=== PATIENT | male | born 2000 | race Caucasian/White ===

== ENCOUNTER 2020-11-23 10:56 | Outpatient (CLI) | payer MEDICAID, SELFPAY ==
--- NOTE | 2020-11-23 11:00 | MR_ITS ---
WS: [id number] MRI LUMBAR SPINE WITH CONTRAST TECHNIQUE: Sagittal T1, T2 and STIR imaging. Axial T1 and T2 imaging. Post gadolinium imaging was obt ained. CLINICAL INFORMATION: HX OF SPINAL HEMANGIOMA; LBP COMPARISON: None. FINDINGS: Mild lumbar curve. No acute compression. Large midline disc protrusion L3-4 results in severe central canal stenosis. L1-L2: Normal. L2-L3: No significant disc bulging. Spinal canal and foramen are patent. L3-L4: Large midline disc protrusion results in severe central canal stenosis. Impingement traversing right greater than left L4 nerve roots. Midline protrusion measures approximately 9.8 x 9.7 mm. Mild facet arthropathy. Foramen are patent. L4-L5: Small left pericentral disc protrusion impinges the traversing left L5 nerve root in the subar ticular recess. Mild central canal stenosis. Mild facet arthropathy. Foramen are patent. L5-S1: No significant disc bulging. Mild facet arthropathy. Spinal canal and foramen are patent. Small right pericentral protrusions T5-T6 and T6-T7 seen on the creative art director imaging mid thoracic spine. Sma ller disc protrusions at T7-T9. Thoracic spine can be further evaluated with MRI. Visualized pelvic bony structures: Normal. Paravertebral soft tissues: A few enlarged periaortic and retroperitoneal lymph nodes nonspecific but likely reactive in a patient this age. Largest lymph nodes measuring up to 1.8 cm. This can be follo wed up with contrast-enhanced CT abdomen pelvis MR/MR lumbar spine wo/w con [id number] IMPRESSION: 1. Large midline disc protrusion L3-4 measuring 9.8 x 9.7 mm results in severe central canal stenosis with impingement traversing right greater than left L4 nerve roots. Recommend Spinal Surgery consultation 2. Small left L4-5 subarticular protrusion impinges the traversing left L5 ner ve root in the subarticular recess. 3. Small disc protrusions visualized in the thoracic spine on the creative art director imagin g more prominent at right T5-T6 and right T6-T7. Additional small protrusions a t T7-T9. This can be further evaluated with thoracic spine MRI. 4. A few enlarged periaortic and retroperitoneal lymph nodes measuring up to 1 .8 cm are nonspecific but likely reactive in a patient this age. This can be fo llowed up with contrast-enhanced CT abdomen pelvis Notified Ann-Marie Orantes MD at 11/23/2020 1:57 PM.
[2020-11-23] MEDS: gadobenate dimeglumine 20 mL vial IV (12:37)
== END 2020-11-23 10:57 | disposition home or self-care (01) ==
LOC: RADWPI 10:56
PROVIDERS: PCP Family Medicine; Visit Provider Family Medicine
DX: D18.09 Hemangioma of other sites (principal); M51.26 Other intervertebral disc displacement, lumbar region; M51.24 Other intervertebral disc displacement, thoracic region
CPT/HCPCS: 72158; A9577

== ENCOUNTER 2020-12-15 22:29 | Emergency (ER) | payer MEDICAID, SELFPAY ==
[2020-12-15 22:39] VITALS: BP 132/79; PULSE 118; RESP 20; TEMP 37; O2SAT 97; BMI 34.0
[2020-12-15 22:43] VITALS: PULSE 112; RESP 24; O2SAT 99
--- NOTE | 2020-12-15 22:49 | ED_ITS ---
HPI - Allergic Reaction General: Chief complaint: Allergic Reaction Stated complaint: allergic reaction has had epi pen Time Seen by Provider: 12/15/20 22:41 Source: patient Mode of arrival: ambulatory Limitations: no limitations History of Present Illness: HPI narrative: 20-year-old male who has history of alpha gal has had multiple allergic reactions in the past. He states that tonight he started to have dyspnea along with rash and gave himself 1 EpiPen at home. He states his shortness of breath is improved and his rash is improved greatly and still is a slight rash to his arms. Denies any worsening improving factors. Associated symptoms: Deny abdominal pain, nausea or vomiting Review of Systems Const: Denies: fever(s), chills, body aches or change in appetite Eyes: Denies: blurry vision or eye discomfort ENMT: Denies: throat pain or dental pain Card: Denies: chest pain Resp: Reports: dyspnea GI: Denies: abdominal pain, nausea, vomiting or diarrhea : Denies: dysuria Musc: Denies: neck pain or back pain Skin/Breast: Reports: rash Neuro: Denies: headache(s) Psych: Denies: depression Hong/Lymph: Denies: easy bruising All/Imm: Denies: urticaria Physical Exam Const: COMMON NORMALS: no acute distress, patient oriented x3 and healthy appearing HENMT: COMMON NORMALS: normocephalic and atraumatic HEAD & SCALP: normocephalic and atraumatic Eye: COMMON NORMALS: Equal, round and reactive pupils present and EOMs intact bilaterally PUPIL: Yes Equal, round and reactive pupils present Neck/C-Spine: COMMON NORMALS: full ROM and supple Chest: COMMONS NORMALS: normal inspection of the chest and normal palpation of entire chest wall Resp: COMMON NORMALS: normal respiratory effort, No retractions, No use of accessory muscles and clear to auscultation bilaterally AUSCULTATION: clear to auscultation bilaterally Cardio: COMMON NORMALS: regular rate, regular rhythm and No murmurs present (Cardio) RATE: regular rate RHYTHM: regular rhythm GI: COMMON NORMALS: Normal to inspection, nondistended, normoactive bowel sounds present, Soft to palpation, non-tender and no masses PALPATION: Yes Soft to palpation Extremity: COMMON NORMALS: normal to inspection and full ROM Neuro: COMMON NORMALS: patient oriented x3, moves all extremities and no focal motor deficits Psych: COMMON NORMALS: mental status grossly normal, Normal thought process present and cooperative THOUGHT PROCESS: Normal thought process present Skin: COMMON NORMALS: no wounds OTHER: Urticarial rash to bilateral arms and chest Course Vital Signs: Vital signs: Vital Signs Temperature 98.6 F 12/15/20 22:39 Pulse Rate 100 12/16/20 00:25 Respiratory Rate 20 H 12/16/20 00:25 Blood Pressure 141/73 12/16/20 00:25 Pulse Oximetry 96 12/16/20 00:25 MDM - Allergic Reaction MDM Narrative: Medical decision making narrative: Patient presents here with allergic reaction. He is much improved and I observed her here for 2 hours. He has plenty of EpiPen's at home as well does not need a refill. He is stable for discharge is to follow-up PCP and return if worsening. Discharge Plan Discharge Patient Disposition: Home Clinical Impression: Allergic reaction Qualifiers: Encounter type: initial encounter Qualified Code(s): T78.40XA - Allergy, unspecified, initial encounter Condition: Stable Discharge Orders: Discharge ED (Routine); Ordered 12/16/20 Ordered By: Pamela Dotson Referrals: Ann-Marie Orantes MD [Primary Care Provider] - Discharge Diet: Advance as tolerated Discharge Activity: Resume usual activity Patient Instructions: Allergic Reaction Coding Level of Care Code ED Financial Services Consultant for Lary Fwdouglas Exam Comprehensive
[2020-12-15] MEDS: diphenhydrAMINE 50 mg/mL SDV 1mL IVP (22:58)
[2020-12-15] MEDS: famotidine 20 mg/2 mL INJ 40 MG IVP (23:03)
[2020-12-15 23:18] VITALS: BP 147/91; PULSE 115; RESP 18; O2SAT 100
[2020-12-16 00:25] VITALS: BP 141/73; PULSE 100; RESP 20; O2SAT 96
[2020-12-16 00:44] VITALS: BP 134/82; PULSE 105; O2SAT 98
== END 2020-12-16 00:49 | disposition home or self-care (01) ==
PROVIDERS: Emergency Provider Emergency Medicine; PCP Family Medicine
DX: T78.40XA Allergy, unspecified, initial encounter (principal)
CPT/HCPCS: 83520; 96374; 96375; 99284; J1200; J2930; J3490

== ENCOUNTER 2020-12-26 20:47 | Emergency (ER) | payer MEDICAID, SELFPAY ==
[2020-12-26 20:57] VITALS: BP 102/67; PULSE 133; RESP 16; TEMP 36.7; O2SAT 97; BMI 33.2
[2020-12-26] MEDS: diphenhydrAMINE 50 mg/mL SDV 1mL IM (23:25)
--- NOTE | 2020-12-26 23:32 | ED_ITS ---
HPI - Allergic Reaction General: Chief complaint: Allergic Reaction Stated complaint: allergic rxn Time Seen by Provider: 12/26/20 23:24 History of Present Illness: HPI narrative: Patient is a 20-year-old male who comes to the ED with allergic reaction. Patient has a history of alpha gal and was seen here in the ED for some more allergic reaction on December 15. Patient started having symptoms of redness and swelling in face, abdominal pain and diarrhea. He has an EpiPen and use the EpiPen around 8 PM tonight. He then came to the ED for further evaluation. While here in the ED his symptoms have mostly resolved and he still is complaining of a little bit of abdominal pain. Denies any fever, chills, nausea/vomiting, shortness of breath or trouble breathing. Associated symptoms: Reports abdominal pain and facial swelling (resolved upon arrival to ED); Deny nausea or vomiting Review of Systems Const: Denies: fever(s), chills or fatigue Eyes: Reports: eye redness (resolved upon arrival to ED.); Denies: change in vision or eye discomfort ENMT: Denies: throat pain, odynophagia, nasal discharge or nasal congestion Card: Denies: chest pain, palpitations, edema, swelling of feet/ankles, dyspnea on exertion or orthopnea Resp: Denies: dyspnea, productive cough or non-productive cough GI: Reports: abdominal pain and diarrhea; Denies: nausea, vomiting, constipation or hematochezia : Denies: flank pain, difficulty urinating, dysuria or hematuria Musc: Denies: neck pain, back pain or extremity swelling Skin/Breast: Denies: rash or new lesions Neuro: Denies: headache(s), numbness in extremities or weakness in extremities All/Imm: Reports: facial swelling (resolved upon arrival to ED) Physical Exam Const: COMMON NORMALS: no acute distress, patient oriented x3, healthy appearing and alert GENERAL APPEARANCE: cooperative and comfortable HENMT: COMMON NORMALS: normocephalic HEAD & SCALP: normocephalic FACE & SINUS: normal facial exam; no edema MOUTH: Normal oral and palatal mucosa present THROAT: posterior oropharynx normal and uvula midline Eye: COMMON NORMALS: Equal, round and reactive pupils present GENERAL EYE: appearance normal, both eyes and all related structures PUPIL: Yes Equal, round and reactive pupils present Neck/C-Spine: COMMON NORMALS: supple GENERAL: Yes normal visual inspection Resp: COMMON NORMALS: normal respiratory effort, No retractions, No use of accessory muscles and clear to auscultation bilaterally EFFORT & INSPECTION: Yes able to speak in complete sentences, No tachypneic, No respiratory distress and No labored AUSCULTATION: clear to auscultation bilaterally Cardio: COMMON NORMALS: regular rate, regular rhythm, S1 normal heart sound present, S2 normal heart sound present, No gallops present (Cardio), No clicks present (Cardio), No murmurs present (Cardio) and Peripheral pulses 2+ throughout RATE: regular rate RHYTHM: regular rhythm HEART SOUNDS: S1 normal heart sound present and S2 normal heart sound present PERIPHERAL PULSES: Peripheral pulses 2+ throughout GI: COMMON NORMALS: Normal to inspection, nondistended, normoactive bowel sounds present, Soft to palpation, non-tender and no masses PALPATION: Yes Soft to palpation : COMMON NORMALS: Yes no CVA tenderness BLADDER/KIDNEY EXAM: Yes no CVA tenderness Back/Pelvis: COMMON NORMALS: no CVA tenderness Extremity: COMMON NORMALS: normal to inspection Neuro: COMMON NORMALS: patient oriented x3 and moves all extremities SENSORIUM/ORIENTATION: Yes alert Skin: GENERAL SKIN EXAM: dry skin Course Reevaluation(s): Reevaluation #1: Patient symptoms have completely resolved. He is resting comfortably and would like to discharge home. Time: 00:37 Vital Signs: Vital signs: Vital Signs Temperature 98.1 F 12/26/20 20:57 Pulse Rate 119 H 12/27/20 01:14 Respiratory Rate 23 H 12/27/20 01:14 Blood Pressure 124/69 12/27/20 01:14 Pulse Oximetry 98 12/27/20 01:14 MDM - Allergic Reaction MDM Narrative: Medical decision making narrative: Patient presents here with allergic reaction. Patient has a history of alpha gal was seen here in the ED for an allergic reaction on December 15. Patient took EpiPen before coming to the ED and then here in the ED he received Benadryl, famotidine and Solu-Medrol. Patient symptoms completely improved. Tryptase lab was performed and results are pending. He is much improved and I observed here for 2 hours. He has plenty of EpiPen's at home as well does not need a refill. He is stable for discharge is to follow-up PCP and return if worsening. Patient understood and agreed with plan. Discharge Plan Discharge Patient Disposition: Home Clinical Impression: Allergic reaction Qualifiers: Encounter type: initial encounter Qualified Code(s): T78.40XA - Allergy, unspecified, initial encounter Condition: Stable Discharge Orders: Discharge ED (Routine); Ordered 12/27/20 Ordered By: Derick Davila Referrals: Ann-Marie Orantes MD [Primary Care Provider] - Discharge Diet: Regular Discharge Activity: Resume usual activity Patient Instructions: Allergic Reaction Activity Restrictions/Additional Instructions: Follow-up with medical provider as directed in 5 to 7 days reevaluation. Your tryptase lab is pending so call the hospital to get final results in a couple days. Continue taking previously prescribed medications as needed. Use EpiPen as needed for another allergic reaction. Return to the ER or your medical provider if condition worsens. Please read and understand discharge instructions. Thank you for choosing [facility] for your healthcare needs today. Please realize this is an emergency room and that we are providing you with a medical screening exam and this may not be complete and all inclusive of all the testing and or work up that you may need to determine your ailment or severity of your illness. It is very important that you follow up as instructed or that you return to the Emergency Department should you have concerns or if your condition changes or worsens in any way. Coding Level of Care Code ED Enrollment Consultant for Lary Gale Exam Comprehensive
[2020-12-26 23:37] VITALS: BP 136/80; PULSE 125; RESP 22; O2SAT 98
[2020-12-26] MEDS: sodium chloride 0.9% 500 ML 999 ML IV (23:45)
[2020-12-26 23:48] VITALS: RESP 22; O2SAT 98
[2020-12-26] MEDS: morphine 4 mg/mL SDV 1 mL 2 MG IVP (23:48)
[2020-12-26] MEDS: famotidine 20 mg/2 mL INJ 40 MG IVP (23:55)
[2020-12-27 01:14] VITALS: BP 124/69; PULSE 119; RESP 23; O2SAT 98
== END 2020-12-27 01:15 | disposition home or self-care (01) ==
PROVIDERS: Emergency Medicine; Emergency Provider Physician Assistant; PCP Family Medicine
DX: T78.40XA Allergy, unspecified, initial encounter (principal)
CPT/HCPCS: 83520; 96372; 96374; 96375; 99283; J1200; J2270; J2930; J3490; J7040

== ENCOUNTER 2021-01-28 19:52 | Emergency (ER) | payer MEDICAID, SELFPAY ==
[2021-01-28 20:06] VITALS: BP 133/85; PULSE 125; RESP 16; TEMP 36.6; O2SAT 96; BMI 35.3
--- NOTE | 2021-01-28 20:20 | ED_ITS ---
HPI - Abdominal Pain General: Chief Complaint: Abdominal Pain Stated Complaint: Lower Abd pain Time Seen by Provider: 01/28/21 20:20 History of Present Illness: HPI narrative: Mr. 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 He now presents to the emergency department due to abdominal pain. Essentially since starting his antibiotics, which she has now completed, he has noted intermittent abdominal cramping however his symptoms today were more severe. Quality is aching and sharp. This is a band at approximately the level of the umbilicus extending superiorly and inferiorly and laterally across the abdomen. 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 His symptoms are mildly worse with movement and palpation but do not go with rest. No other specific changes in health, provoking, or exacerbating elements noted. Review of Systems General: Reports: 10 or more systems reviewed and unremarkable except in HPI and below Narrative: CONSTITUTIONAL: See HPI EYES - denies pain, denies loss of vision EARS - denies ear issues. NOSE - denies congestion or rhinorrhea. THROAT - denies sore throat or difficulty swallowing. CARDIOVASCULAR - denies chest pain and palpitations RESPIRATORY - denies shortness of breath and cough GASTROINTESTINAL -see HPI GENITOURINARY - denies dysuria or urinary frequency MUSCULOSKELETAL- denies deformity or pain SKIN - denies rashes or new changed skin lesions NEUROLOGIC - denies focal weakness or sensory changes HEMATOLOGIC/LYMPHATIC - denies easy bruising or lymphadenopathy. Physical Exam Narrative: EXAM NARRATIVE: GENERAL/CONSTITUTIONAL -mildly ill-appearing. Discomfort due to pain Eyes - PERRL, no conjunctival injection ENMT - Atraumatic external nose and ears. Moist mucous membranes NECK - supple. trachea midline CARDIOVASCULAR - regular rate and rhythm. Peripheral pulses 2+ and equal RESPIRATORY -clear to auscultation bilaterally. No retractions or accessory mu scle use. ABDOMEN/GI -mild to moderate tenderness to palpation in areas of reported pain. Nondistended. No tenderness to percussion or evidence of peritonitis MSK - Extremities without obvious deformity or tenderness to palpation SKIN - Warm, Dry NEURO - alert and appropriately oriented. strength and sensation intact. Moves all extremities equally. PSYCH - Appropriate mood and affect Course ED course: - Patient was seen and evaluated by me at bedside - Patient placed on cardiac monitors, IV access obtained - Initial evaluation notable for mildly ill-appearing, patient is tachycardic and has abdominal tenderness to palpation. - Labs and imaging obtained and reviewed -Symptom treatment ordered - Labs notable for minimal leukocytosis, mild thrombocytosis. No significant metabolic abnormalities to explain the patient's symptoms. No evidence of urinary tract infection. - This is a challenging and a difficult situation in a 20-year-old male. Given clinical exam findings and clinical history imaging is warranted. Imaging notable for no acute abnormality to explain patient's symptoms. - Upon serial reexamination after treatment the patient was improved - Based on patient history, evaluation, labs, and imaging as interpreted the most likely cause of the patient's condition is nonspecific abdominal pain - The results of ED evaluation were discussed with the patient including prescriptions and/or symptomatic cares (if applicable) including appropriate and responsible use, followup plan, and return precautions. The patient verbalized understanding and felt safe for discharge. - Patient discharged in satisfactory condition. Vital Signs: Vital signs: Vital Signs Temperature 98.8 F 01/28/21 20:28 Pulse Rate 118 H 01/29/21 00:39 Respiratory Rate 15 01/29/21 00:39 Blood Pressure 124/86 01/29/21 00:39 Pulse Oximetry 99 01/29/21 00:39 MDM - Abdominal Pain Medical Records: Attestation: I reviewed the patient's medical records. Lab Data: Attestation: I reviewed the patient's lab results. Labs: Lab Results 01/28/21 01/28/21 01/28/21 Range/Units 21:01 21:31 21:31 WBC 10.3 H (4.0-10.0) 10^3/ uL RBC 4.70 (4.1-5.3) 10^6/u L Hgb 13.8 (11.7-16.6) g/dL Hct 40.6 L (42.0-52.0) % MCV 86.4 (80-94) fl MCH 29.4 (28.0-34.0) pg MCHC 34.0 (30.0-36.0) g/dL RDW 14.5 (12.1-15.1) % Plt Count 432 H (130-400) 10^3/c mm MPV 8.9 (7.4-10.4) fL Neut % (Auto) 70.1 % Lymph % (Auto) 19.8 % Barry % (Auto) 7.9 % Eos % (Auto) 1.3 % Baso % (Auto) 0.5 % Neut # (Auto) 7.25 (1.8-7.7) 10^3/u L Lymph # (Auto) 2.1 (0.8-4.8) 10^3/u L Barry # (Auto) 0.8 (0.2-0.9) 10^3/u L Eos # (Auto) 0.1 (0.0-0.8) 10^3/u L Baso # (Auto) 0.1 (0.0-0.1) 10^3/u L Nucleated RBC % (a uto) 0 % Nucleated RBCs # 0.0 /100WBC ESR 9 (0-10) mm/hr Sodium (136-145) mmol/L Potassium (3.5-5.1) mmol/L Chloride (98-107) mmol/L Carbon Dioxide (22-29) mmol/L Anion Gap (5-19) BUN (6-20) mg/dL Creatinine (0.7-1.2) mg/dL GFR Calculation (90-130) mL/min Glucose (65-115) mg/dL Calculated Osmolal ity (285-295) mOsm/k g Lactate (0.5-2.2) mmol/L Calcium (8.5-10.5) mg/dL Total Bilirubin (0.15-1.2) mg/dL AST (0-40) U/L ALT (0-41) U/L Alkaline Phosphata se (40-130) IU/L C-Reactive Protein (0.0-4.9) mg/L Total Protein (6.6-8.7) g/dL Albumin (3.5-5.2) g/dL Globulin (1.3-4.6) g/dL Lipase (13-60) U/L Urine Color Yellow (Yellow) Urine Appearance Clear (CLEAR) Urine pH 5 (5-7) Ur Specific Gravit y 1.020 (1.005-1.030) Urine Protein Neg (Negative) Urine Glucose (UA) Norm (Normal) Urine Ketones Negative (Negative) Urine Blood Neg (Negative) Urine Nitrate Negative (Negative) Urine Bilirubin 1+ H (Negative) Urine Urobilinogen 1 H (Negative) mg/dL Ur Leukocyte Raina ase Negative (Negative) 01/28/21 01/28/21 Range/Units 21:31 21:31 WBC (4.0-10.0) 10^3/ uL RBC (4.1-5.3) 10^6/u L Hgb (11.7-16.6) g/dL Hct (42.0-52.0) % MCV (80-94) fl MCH (28.0-34.0) pg MCHC (30.0-36.0) g/dL RDW (12.1-15.1) % Plt Count (130-400) 10^3/c mm MPV (7.4-10.4) fL Neut % (Auto) % Lymph % (Auto) % Barry % (Auto) % Eos % (Auto) % Baso % (Auto) % Neut # (Auto) (1.8-7.7) 10^3/u L Lymph # (Auto) (0.8-4.8) 10^3/u L Barry # (Auto) (0.2-0.9) 10^3/u L Eos # (Auto) (0.0-0.8) 10^3/u L Baso # (Auto) (0.0-0.1) 10^3/u L Nucleated RBC % (a uto) % Nucleated RBCs # /100WBC ESR (0-10) mm/hr Sodium 140 (136-145) mmol/L Potassium 4.0 (3.5-5.1) mmol/L Chloride 102 (98-107) mmol/L Carbon Dioxide 25 (22-29) mmol/L Anion Gap 17.0 (5-19) BUN 6 (6-20) mg/dL Creatinine 0.6 L (0.7-1.2) mg/dL GFR Calculation 170.1 H (90-130) mL/min Glucose 93 (65-115) mg/dL Calculated Osmolal ity 287 (285-295) mOsm/k g Lactate 1.2 (0.5-2.2) mmol/L Calcium 8.8 (8.5-10.5) mg/dL Total Bilirubin 0.8 (0.15-1.2) mg/dL AST 20 (0-40) U/L ALT 30 (0-41) U/L Alkaline Phosphata se 92 (40-130) IU/L C-Reactive Protein 5.0 H (0.0-4.9) mg/L Total Protein 7.3 (6.6-8.7) g/dL Albumin 4.6 (3.5-5.2) g/dL Globulin 2.7 (1.3-4.6) g/dL Lipase 19 (13-60) U/L Urine Color (Yellow) Urine Appearance (CLEAR) Urine pH (5-7) Ur Specific Gravit y (1.005-1.030) Urine Protein (Negative) Urine Glucose (UA) (Normal) Urine Ketones (Negative) Urine Blood (Negative) Urine Nitrate (Negative) Urine Bilirubin (Negative) Urine Urobilinogen (Negative) mg/dL Ur Leukocyte Raina ase (Negative) Discharge Plan Discharge Patient Disposition: Home Clinical Impression: Abdominal pain Condition: Stable Discharge Orders: Discharge ED (Routine); Ordered 01/29/21 Ordered By: Florian Sellers Referrals: Ann-Marie Orantes MD [Primary Care Provider] - Discharge Diet: Usual diet Discharge Activity: Resume usual activity Patient Instructions: Abdominal Pain (ED), Opioid Safety Activity Restrictions/Additional Instructions: Please return for anything that you are concerned about and feel needs ED evaluation. Coding Level of Care Code ED Manufacturing Technology Professor for Lary Gale
[2021-01-28 20:28] VITALS: BP 136/92; PULSE 123; RESP 14; TEMP 37.1; O2SAT 98
[2021-01-28 21:14] LABS: Add Urine Microscopic? NO; Charge for UA Resulting for Rev
[2021-01-28 21:16] LABS: Urine Appearance Clear (CLEAR); Urine Color Yellow (Yellow); pH Urine 5 (5-7)
[2021-01-28 21:17] LABS: Bilirubin Urine 1+ (Negative); Blood Urine Neg (Negative); Glucose Urine UA Norm (Normal); Ketones Urine Negative (Negative); Leukocyte Esterase Urine Negative (Negative); Nitrate Urine Negative (Negative); Protein Urine Neg (Negative); Urobilinogen Urine 1 mg/dL (Negative)
[2021-01-28] MEDS: sodium chloride 0.9% 1,000 ML 999 ML IV (21:25)
[2021-01-28] MEDS: acetaminophen 500 mg Tablet 1000 MG PO (21:25)
[2021-01-28] MEDS: ketorolac 30 mg/mL INJ 15 MG IVP (21:25)
[2021-01-28 21:30] VITALS: BP 128/82; PULSE 102; RESP 18; O2SAT 98
[2021-01-28 21:33] LABS: Basophils # 0.1 10^3/uL (0.0-0.1); Basophils % 0.5 %; Eosinophils # 0.1 10^3/uL (0.0-0.8); Eosinophils % 1.3 %; Hematocrit 40.6 % (42.0-52.0); Hemoglobin 13.8 g/dL (11.7-16.6); Lymphocytes # 2.1 10^3/uL (0.8-4.8); Lymphocytes % 19.8 %; Mean Corpuscular Hemoglobin 29.4 pg (28.0-34.0); Mean Corpuscular Volume 86.4 fl (80-94); Mean Platelet Volume 8.9 fL (7.4-10.4); Monocytes # 0.8 10^3/uL (0.2-0.9); Monocytes % 7.9 %; Neutrophils # 7.25 10^3/uL (1.8-7.7); Neutrophils % 70.1 %; Nucleated Red Blood Cells % 0 %; Platelet Count 432 10^3/cmm (130-400); Red Cell Distribution Width 14.5 % (12.1-15.1); White Blood Count 10.3 10^3/uL (4.0-10.0)
[2021-01-28 21:53] LABS: Alanine Aminotransferase 30 U/L (0-41); Albumin Level 4.6 g/dL (3.5-5.2); Alkaline Phosphatase 92 IU/L (40-130); Aspartate Amino Transferase 20 U/L (0-40); Blood Urea Nitrogen 6 mg/dL (6-20); Calcium 8.8 mg/dL (8.5-10.5); Carbon Dioxide 25 mmol/L (22-29); Chloride 102 mmol/L (98-107); Globulin 2.7 g/dL (1.3-4.6); Glomerular Filtration Rate 170.1 mL/min (90-130); Glucose 93 mg/dL (65-115); Lactate (Lactic Acid level) 1.2 mmol/L (0.5-2.2); Lipase 19 U/L (13-60); Osmolality Calculated 287 mOsm/kg (285-295); Sodium 140 mmol/L (136-145); Total Bilirubin 0.8 mg/dL (0.15-1.2); Total Protein 7.3 g/dL (6.6-8.7)
[2021-01-28 22:01] VITALS: BP 123/76; PULSE 108; RESP 15; O2SAT 99
--- NOTE | 2021-01-28 22:13 | CTR_ITS ---
PROCEDURE INFORMATION: Exam: CT Abdomen And Pelvis With Contrast Exam date and time: 01/28/2021 10:13 PM Age: 20 years old Clinical indication: Abdominal pain; Localized; Prior surgery; Surgery date: 1-6 months; Surgery type: L-sp; Patient HX: C/O lower abd pain since low back surgery 6 weeks ago TECHNIQUE: Imaging protocol: Computed tomography of the abdomen and pelvis with contrast. Radiation optimization: All CT scans at this facility use at least one of these dose optimization techniques: automated exposure control; mA and/or kV adjustment per patient size (includes targeted exams where dose is matched to clinical indication); or iterative reconstruction. Contrast material: OMNI 300; Contrast volume: 95 ml; Contrast route: INTRAVENOUS (IV); COMPARISON: MR lumbar spine wo/w con [id number] 11/23/2020 11:17 AM RADIATION DOSE METRICS: Total DLP (mGy-cm): 1873.33 FINDINGS: Liver: Diffuse liver steatosis. No focal liver mass. Gallbladder and bile ducts: Normal. No calcified stones. No ductal dilation. Pancreas: Normal. No ductal dilation. Spleen: Normal. No splenomegaly. Adrenal glands: Normal. No mass. Kidneys and ureters: Normal. No hydronephrosis. Stomach and bowel: Unremarkable. No obstruction. No mucosal thickening. Appendix: No evidence of appendicitis. Intraperitoneal space: Unremarkable. No free air. No significant fluid collection. Vasculature: Unremarkable. No abdominal aortic aneurysm. Lymph nodes: Unremarkable. No enlarged lymph nodes. Urinary bladder: Unremarkable as visualized. Reproductive: Unremarkable as visualized. Bones/joints: No acute lumbar spine fracture. Unremarkable lumbar spine alignment. Soft tissues: There is surgical change posteriorly at L3-L4 with the small midline posterior paraspinal soft tissue fluid collection CT/CT abdomen pelvis w con* [id number] IMPRESSION: 1. No acute intra-abdominal abnormality identified. 2. Focal postsurgical changes of the lower lumbar spine with the small midline nonspecific postoperative paraspinal soft tissue fluid collection. Radiation Dose CTDIVOL = (mGy): DLP = 1873.33 (mGy-cm)
[2021-01-28 22:37] LABS: Erythrocyte Sedimentation Rate 9 mm/hr (0-10)
[2021-01-28 22:43] VITALS: BP 133/59; PULSE 110; RESP 18; O2SAT 99
[2021-01-28] MEDS: iohexol 300 mg/mL 100 mL Btl IV (22:57)
[2021-01-28 23:44] VITALS: BP 114/70; PULSE 113; O2SAT 99
[2021-01-29 00:39] VITALS: BP 124/86; PULSE 118; RESP 15; O2SAT 99
== END 2021-01-29 00:40 | disposition home or self-care (01) ==
PROVIDERS: Emergency Provider Emergency Medicine; PCP Family Medicine
DX: R10.9 Unspecified abdominal pain (principal)
CPT/HCPCS: 74177; 80053; 81003; 83605; 83690; 85025; 85651; 86140; 96361; 96374; 99284; J1885; J7030; Q9967

== ENCOUNTER 2023-05-24 08:27 | Outpatient (CLI) | payer MEDICAID, SELFPAY ==
--- NOTE | 2023-05-24 08:36 | US_ITS ---
WS: [id number] Complete ABDOMINAL ULTRASOUND HISTORY: DISORDERS OF KIDNEY URETER/SPLENOMEGALY/FATTY LIVER COMPARISON: CT abdomen 01/28/2021 Liver: 17.8 cm in length. Mildly enlarged liver with marked hepatic steatosis. The entire liver is no t well visualized due to attenuation. No mass identified. Portal Vein: Normal hepatopetal flow with monophasic waveform. Gallbladder: Normally distended gallbladder with no stones or wall thickening. CBD: 0.4 cm Pancreas: Poorly visualized due to body habitus. Right kidney: 10.1 cm x 4.8 x 5.8 cm. Cortex:1.1 cm. Normal size and echogenicity. No hydronephrosis or mass. Left kidney: 11.2 cm x 5.9 cm x 5.2 cm. Cortex: 1.1 cm. Normal size and echogenicity. No hydronephrosis or mass. Spleen: Spleen is enlarged measuring 14.0 cm in length. Aorta and IVC: Unremarkable abdominal aorta and IVC. Impression: 1. No renal mass identified by ultrasound. 2. Negative gallbladder. 3. Mildly enlarged spleen at 14.0 cm. Similar size of the spleen on 01/28/2021. 4. Mild hepatomegaly with marked hepatic steatosis.
== END 2023-05-24 08:28 | disposition home or self-care (01) ==
LOC: RAD 08:28
PROVIDERS: PCP Family Medicine; Visit Provider Family Medicine
DX: N28.89 Other specified disorders of kidney and ureter (principal); K76.0 Fatty (change of) liver, not elsewhere classified; R16.1 Splenomegaly, not elsewhere classified; R16.0 Hepatomegaly, not elsewhere classified
CPT/HCPCS: 76700

== ENCOUNTER 2024-09-15 17:04 | Outpatient (CLI) | payer MEDICAID, SELFPAY ==
--- NOTE | 2024-09-15 17:11 | XR_ITS ---
WS: [id number] Lumbar spine, 4 views including both obliques, 09/15/2024 Clinical Data: low back pain, spinal stenosis Comparison: None. Findings: No compression fractures or subluxation is seen. No disc space narrowing is seen. The transverse processes and SI joints are normal. The oblique films show no spondylolysis. XR/XR lumbar spine min 4V [id number] Impression: Negative lumbar spine and obliques.
== END 2024-09-15 17:05 | disposition home or self-care (01) ==
PROVIDERS: PCP Family Medicine; Visit Provider Family Medicine
DX: M48.061 Spinal stenosis, lumbar region without neurogenic claudication (principal); M54.59 Other low back pain
CPT/HCPCS: 72110